=== PATIENT | male | born 1930 | race African-American/Black ===

== ENCOUNTER 2018-09-18 16:28 | Inpatient (IN) | payer OTHER, MEDICAID ==
[~2018-09-18] VITALS: Ht 170.2 cm; Wt 73.0 kg
[~2018-09-18 16:28] MED LIST: ATOR20TA65 PO; FINA5TAB11 PO; IBUP-2030 PO; LISI-604 PO; OMEP20CA10 PO
[2018-09-18] MEDS ORDERED: SODIUM CHLORIDE 0.9% 1,000 ML IV ONE (18:40)
[2018-09-18 19:39] LABS: BASOPHILS % 0.6 % (0.0-2.0); EOSINOPHILS % 6.3 % (0.0-5.0); HEMATOCRIT. 30.9 % (42.0-52.0); HEMOGLOBIN. 9.9 g/dL (14.0-18.0); LYMPHOCYTES % 25.6 % (20.0-50.0); MEAN CORPUSCULAR VOLUME 87.4 fL (80.0-94.0); MEAN PLATELET VOLUME 6.7 fl (7.4-10.4); MONOCYTES % 8.8 % (2.0-8.0); NEUTROPHILS % 58.7 % (40.0-76.0); PLATELET 298 x1000/uL (130-400); RED BLOOD CELL COUNT 3.54 mill/uL (4.7-6.1); RED CELL DISTRIBUTION WIDTH 18.3 % (11.6-14.6)
[2018-09-18 19:42] LABS: CHLORIDE 116 mEq/L (98-107)
[2018-09-18 19:46] LABS: INR 1.2; PARTIAL THROMBOPLASTIN TIME 30.6 sec (23.4-31.0); PROTHROMBIN TIME 12.2 sec (9.1-11.1)
[2018-09-18] MEDS ORDERED: SODIUM BICARBONATE 8.4% 1 MEQ/ML 50ML SYR IV ONE (20:30)
[2018-09-18] MEDS ORDERED: SODIUM POLYSTYRENE SULFONATE 15 G/60 ML BOT PO ONE (20:30)
[2018-09-18] MEDS ORDERED: INSULIN REGULAR (HUMULIN R) 300UNITS/3ML IV ONE (20:30)
[2018-09-18] MEDS ORDERED: DEXTROSE 50% WATER 50ML SYRINGE IV ONE (20:30)
[2018-09-18] MEDS ORDERED: CALCIUM CHLORIDE 1GM/10ML SYR IV ONE (20:30)
[2018-09-18 21:07] LABS: CLARITY URINE TURBID (CLEAR); COLOR URINE YELLOW (YELLOW); KETONES URINE NEGATIVE (NEGATIVE); LEUKOCYTE ESTERASE URINE 3+ (NEGATIVE); NITRITE URINE NEGATIVE (NEGATIVE); OCCULT BLOOD URINE 2+ (NEGATIVE); PROTEIN URINE 2+ (NEGATIVE); SPECIFIC GRAVITY URINE 1.014 (1.005-1.030); UROBILINOGEN URINE 0.2 E.U./dL (0.2-1.0)
[2018-09-18] MEDS ORDERED: CEFTRIAXONE 1 G PREMIX 50 ML IV ONE (21:30)
[2018-09-18] MEDS ORDERED: DOCUSATE SODIUM 100MG CAPSULE PO PRN (21:45)
[2018-09-18] MEDS ORDERED: ACETAMINOPHEN 325MG TABLET PO PRN (21:45)
[2018-09-18] MEDS ORDERED: TRAMADOL 50MG TABLET PO PRN (21:45)
[2018-09-18] MEDS ORDERED: SODIUM CHLORIDE 0.9% 1000ML BAG (SEPSIS BOLUS) IV NR (21:45)
[2018-09-18] MEDS ORDERED: MAGNESIUM/ALUMINUM HYDROXIDE/SIMETHICONE 30ML UDC PO PRN (21:45)
[2018-09-18] MEDS ORDERED: ONDANSETRON HCL 4MG/2ML INJ IV PRN (21:45)
[2018-09-18] MEDS ORDERED: CLONIDINE 0.1MG TABLET PO PRN (21:45)
[2018-09-18] MEDS ORDERED: IPRATROPIUM/ALBUTEROL 0.5-3(2.5)MG/3ML NEB INH PRN (21:45)
[2018-09-18] MEDS ORDERED: GUAIFENESIN 200MG/10ML SUGAR FREE UDC PO PRN (21:45)
[2018-09-18] MEDS ORDERED: NITROGLYCERIN 0.4MG TABLET SL SL PRN (21:45)
[2018-09-18] MEDS ORDERED: DEXTROSE 50% WATER 50ML SYRINGE IV PRN (22:15)
[2018-09-18] MEDS ORDERED: LORAZEPAM 2MG/ML CPJ IV ONE (22:15)
[2018-09-18 23:30] VITALS: BP 136/79
[2018-09-19] VITALS (12 sets, daily range): BP systolic 95–140; BP diastolic 53–97
[2018-09-19 00:20] LABS: CREATINE KINASE MB FRACTION 2.9 ng/mL (0.5-3.6)
[2018-09-19] MEDS ORDERED: SODIUM POLYSTYRENE SULFONATE 15 G/60 ML BOT PO NR ×2 (01:00→13:00)
[2018-09-19] MEDS: SODIUM CHLORIDE 0.9% 1,000 ML IV SCH ×2 (01:33→08:34)
[2018-09-19 01:55] LABS: TOTAL IRON BINDING CAPACITY 232 ug/dL (250-450)
[2018-09-19] MEDS ORDERED: LEVOFLOXACIN 500MG PREMIX 100 ML IV NR (02:00)
[2018-09-19 02:17] LABS: FOLIC ACID (FOLATE) SERUM 3.1 ng/mL (>5.38)
[2018-09-19] MEDS: BLOOD SUGAR DIAGNOSTIC STRIP TEST SCH ×4 (08:08→21:00)
[2018-09-19] MEDS: INSULIN LISPRO 100 UNITS/ML SUBCUT SCH ×4 (08:08→23:19)
[2018-09-19] MEDS: ASCORBIC ACID 500 MG TABLET PO SCH ×2 (08:57→23:18)
[2018-09-19] MEDS: ASPIRIN 325MG EC TABLET PO SCH (08:57)
[2018-09-19] MEDS: ZINC SULFATE 220 MG ( 50 ) CAPSULE PO SCH (08:57)
[2018-09-19] MEDS: FAMOTIDINE 20MG TABLET PO SCH (08:58)
[2018-09-19] MEDS: ENOXAPARIN 30MG/0.3ML SYR SUBCUT SCH (08:59)
[2018-09-19] MEDS: METOPROLOL TARTRATE 25MG TABLET PO SCH ×2 (09:00→23:19)
[2018-09-19] MEDS ORDERED: CEFTRIAXONE 1 G PREMIX 50 ML IV SCH ×2 (09:00→23:00)
[2018-09-19 09:52] LABS: CHLORIDE 123 mEq/L (98-107)
[2018-09-19 09:58] LABS: HEMATOCRIT. 31.6 % (42.0-52.0); HEMOGLOBIN. 10.2 g/dL (14.0-18.0); MEAN CORPUSCULAR HEMOGLOBIN 28.3 pg (28.0-32.0); MEAN CORPUSCULAR VOLUME 88.1 fL (80.0-94.0); MEAN PLATELET VOLUME 7.2 fl (7.4-10.4); PLATELET 260 x1000/uL (130-400); RED BLOOD CELL COUNT 3.59 mill/uL (4.7-6.1); RED CELL DISTRIBUTION WIDTH 18.1 % (11.6-14.6)
[2018-09-19 10:36] LABS: ATYPICAL LYMPHOCYTES 1
[2018-09-19 10:37] LABS: PLATELET ESTIMATE NORMAL
[2018-09-19] MEDS ORDERED: FOLIC ACID 1 MG in SODIUM CHLORIDE 0.9% 500 ML IV NR (11:00)
[2018-09-19] MEDS: IPRATROPIUM/ALBUTEROL 0.5-3(2.5)MG/3ML NEB HHN SCH ×2 (11:30→20:36)
[2018-09-19] MEDS ORDERED: SODIUM BICARBONATE 8.4% 1 MEQ/ML 50ML SYR IV NR (12:15)
[2018-09-19] MEDS: SODIUM CHLORIDE 0.45% 1,000 ML IV SCH ×2 (12:23→23:16)
[2018-09-20] VITALS (11 sets, daily range): BP systolic 78–149; BP diastolic 51–86
[2018-09-20] MEDS: IPRATROPIUM/ALBUTEROL 0.5-3(2.5)MG/3ML NEB HHN SCH ×4 (00:22→21:15)
[2018-09-20] MEDS: BLOOD SUGAR DIAGNOSTIC STRIP TEST SCH ×4 (06:43→20:24)
[2018-09-20] MEDS: INSULIN LISPRO 100 UNITS/ML SUBCUT SCH ×4 (07:37→22:39)
[2018-09-20] MEDS: FAMOTIDINE 20MG TABLET PO SCH (09:28)
[2018-09-20] MEDS: ZINC SULFATE 220 MG ( 50 ) CAPSULE PO SCH (09:28)
[2018-09-20] MEDS: ASPIRIN 325MG EC TABLET PO SCH (09:28)
[2018-09-20] MEDS: ASCORBIC ACID 500 MG TABLET PO SCH ×2 (09:28→20:18)
[2018-09-20] MEDS: METOPROLOL TARTRATE 25MG TABLET PO SCH ×2 (09:29→20:18)
[2018-09-20] MEDS: FOLIC ACID 1MG TABLET PO SCH (09:29)
[2018-09-20] MEDS: SODIUM CHLORIDE 0.45% 1,000 ML IV SCH (09:30)
[2018-09-20] MEDS: ENOXAPARIN 30MG/0.3ML SYR SUBCUT SCH (09:31)
[2018-09-20] MEDS ORDERED: ENOXAPARIN 40MG/0.4ML SYR SUBCUT SCH (11:30)
[2018-09-20 13:12] LABS: HEMATOCRIT. 30.8 % (42.0-52.0); HEMOGLOBIN. 9.8 g/dL (14.0-18.0); MEAN CORPUSCULAR VOLUME 87.7 fL (80.0-94.0); MEAN PLATELET VOLUME 6.9 fl (7.4-10.4); PLATELET 211 x1000/uL (130-400); RED BLOOD CELL COUNT 3.51 mill/uL (4.7-6.1); RED CELL DISTRIBUTION WIDTH 18.2 % (11.6-14.6)
[2018-09-20 13:13] LABS: CHLORIDE 121 mEq/L (98-107)
[2018-09-20 14:13] LABS: ATYPICAL LYMPHOCYTES 1; PLATELET ESTIMATE NORMAL
[2018-09-20] MEDS ORDERED: SODIUM CHLORIDE 0.9% 1,000 ML IV NR (16:30)
[2018-09-20] MEDS: DILTIAZEM HCL 30MG TABLET PO SCH ×2 (17:46→23:25)
[2018-09-20] MEDS: ALBUMIN HUMAN 25GM/100ML (25%) IV SCH (21:41)
[2018-09-20] MEDS ORDERED: CEFTRIAXONE 1,000 MG in DEXTROSE 5% WATER 50 ML IV SCH (23:00)
[2018-09-20] MEDS ORDERED: LEVOFLOXACIN 250MG PREMIX 50 ML IV SCH (23:00)
[2018-09-21] VITALS (11 sets, daily range): BP systolic 115–144; BP diastolic 57–70
[2018-09-21] MEDS: IPRATROPIUM/ALBUTEROL 0.5-3(2.5)MG/3ML NEB HHN SCH ×3 (00:10→13:25)
[2018-09-21] MEDS: SODIUM CHLORIDE 0.45% 1,000 ML IV SCH ×3 (00:55→13:54)
[2018-09-21] MEDS: ALBUMIN HUMAN 25GM/100ML (25%) IV SCH ×2 (05:25→13:53)
[2018-09-21] MEDS: DILTIAZEM HCL 30MG TABLET PO SCH ×3 (05:26→17:40)
[2018-09-21] MEDS: BLOOD SUGAR DIAGNOSTIC STRIP TEST SCH ×3 (08:01→17:31)
[2018-09-21] MEDS: FAMOTIDINE 20MG TABLET PO SCH (08:56)
[2018-09-21] MEDS: FOLIC ACID 1MG TABLET PO SCH (08:56)
[2018-09-21] MEDS: ASCORBIC ACID 500 MG TABLET PO SCH (08:56)
[2018-09-21] MEDS: ASPIRIN 325MG EC TABLET PO SCH (08:56)
[2018-09-21] MEDS: INSULIN LISPRO 100 UNITS/ML SUBCUT SCH ×2 (09:00→12:47)
[2018-09-21] MEDS: METOPROLOL TARTRATE 25MG TABLET PO SCH (09:08)
[2018-09-21] MEDS: ZINC SULFATE 220 MG ( 50 ) CAPSULE PO SCH (09:08)
[2018-09-21] MEDS ORDERED: ENOXAPARIN 80MG/0.8ML SYR SUBCUT SCH (12:00)
[2018-09-21 12:08] LABS: HEMATOCRIT. 25.5 % (42.0-52.0); HEMOGLOBIN. 8.4 g/dL (14.0-18.0); MEAN CORPUSCULAR VOLUME 88.5 fL (80.0-94.0); MEAN PLATELET VOLUME 6.6 fl (7.4-10.4); PLATELET 137 x1000/uL (130-400); RED BLOOD CELL COUNT 2.89 mill/uL (4.7-6.1); RED CELL DISTRIBUTION WIDTH 18.1 % (11.6-14.6)
[2018-09-21 12:22] LABS: CHLORIDE 121 mEq/L (98-107)
[2018-09-21 13:32] LABS: PLATELET ESTIMATE NORMAL
== END 2018-09-21 18:40 | disposition short-term general hospital (02) | DRG 871 ==
LOC: ER 16:28 → 5EST 21:22 → EDBEDREQ 21:34 → EDBEDREQTM 21:34 → EDBEDREQSVC 21:34 → ENRESERV 22:38
PROVIDERS: ADMIT Internal Medicine; ATTEND Internal Medicine
DX: A41.9 Sepsis, unspecified organism (principal); E43 Unspecified severe protein-calorie malnutrition; N17.0 Acute kidney failure with tubular necrosis; G92 Toxic encephalopathy; E87.0 Hyperosmolality and hypernatremia; E87.2 Acidosis; N39.0 Urinary tract infection, site not specified; R65.20 Severe sepsis without septic shock; Z68.25 Body mass index [BMI] 25.0-25.9, adult; D63.8 Anemia in other chronic diseases classified elsewhere; E11.9 Type 2 diabetes mellitus without complications; E78.00 Pure hypercholesterolemia, unspecified; E87.5 Hyperkalemia; F03.90 Unspecified dementia, unspecified severity, without behavioral disturbance, psychotic disturbance, mood disturbance, and anxiety; I10 Essential (primary) hypertension; I25.10 Atherosclerotic heart disease of native coronary artery without angina pectoris; I48.91 Unspecified atrial fibrillation; R62.7 Adult failure to thrive; F32.9 Major depressive disorder, single episode, unspecified
CPT/HCPCS: 36415; 71045; 80061; 82550; 82553; 82607; 82746; 82962; 83036; 83540; 83550; 83605; 83880; 84484; 87077; 87186; 87493; 93005; 93970; 94640; 96365; 96375; 99285; J0696; J1650; J1815; J1956; J2060; J3490; J7030; J7040; J7060; J7620; P9047; A4315